=== PATIENT | female | born 1950 | race Caucasian/White ===

== ENCOUNTER → 2020-04-26 | Outpatient (CLI) | payer MEDICARE, OTHER ==
[~2020-04-26] MED LIST: CEFP500 PO; COLE625 PO; FOLI1 PO; Flomax0.4 MG PO; HYOS.125 SL; LOPE2C PO; Pyridium100 MG PO; TUMS ULTRA ST1177 MG PO; Vitamin D2000 UNIT PO
== END | disposition home or self-care (01) ==
LOC: LAB SHORT 15:21 → LAB 15:21
DX: D48.5 Neoplasm of uncertain behavior of skin (principal)
CPT/HCPCS: 88305

== ENCOUNTER → 2021-03-15 | Outpatient (CLI) | payer MEDICARE, OTHER ==
[2021-03-15 13:17] LABS: Stool Occult Bld Immuno 1 Negative (NEGATIVE)
== END | disposition home or self-care (01) ==
LOC: LAB SHORT 07:00 → LAB 07:00
PROVIDERS: Internal Medicine Gastroenterology
DX: Z09 Encounter for follow-up examination after completed treatment for conditions other than malignant neoplasm (principal); Z86.010 Personal history of colon polyps
CPT/HCPCS: 82274

== ENCOUNTER → 2021-04-26 | Outpatient (CLI) | payer MEDICARE, OTHER | LOC: LAB SHORT 12:49 → LAB 12:49 | DX: D48.5 Neoplasm of uncertain behavior of skin (principal); D22.39 Melanocytic nevi of other parts of face; Q82.8 Other specified congenital malformations of skin | CPT/HCPCS: 88305; 88312 ==

== ENCOUNTER 2022-03-08 07:16 | Day surgery (SDC) | payer MEDICARE, OTHER ==
[~2022-03-08] VITALS: Ht 180.3 cm; Wt 71.7 kg
[~2022-03-08 07:16] MED LIST changes: +DIPATR PO; +VITAMIN D310 MC4 PO; +[UNRECOGNIZED DRUG - OTHER] PO
--- NOTE | 2022-03-08 08:19 | NUR ---
Ambulatory in Day SurgeryPatient states colon prep results clear. History, Chart, Medications and Allergies reviewed before start of procedure.Pre-Op teaching done. Pt verbalizes understanding. Patient States Post-Procedure ride home has been arranged.
--- NOTE | 2022-03-08 09:12 | NUR ---
03/08/22 0912 [facility] Lopez [facility] [place] CASE WITH DR. HARMON, SEE ANESTHESIA RECORDS. PROCEDURE PERFORMED IN OR 2.
--- NOTE | 2022-03-08 11:00 | NUR ---
Patient up to Ambulate independently. Gait steady. Discharge instructions reviewed with patient. Patient verbalizes understanding. Copy given to patient to take home. Patient States Post-Procedure ride home has been arranged. Discharged via wheelchair to private car for ride home. PT DECLINED PAIN MEDICATION WELL RN ASSESSING PAD. PT REPORTS THAT SHE IS FEELING DRY AND THAT SHE HAS PADS AT HOME IF NEEDED. PT REPORTS NO PAIN, N/V, SOB, CP.
== END 2022-03-08 11:00 | disposition home or self-care (01) ==
LOC: ORSCMMR 07:16 → ORD 07:30 → ORSCMMR 08:45
DX: K62.5 Hemorrhage of anus and rectum (principal); Z86.010 Personal history of colon polyps; K64.4 Residual hemorrhoidal skin tags; Z85.42 Personal history of malignant neoplasm of other parts of uterus; E78.5 Hyperlipidemia, unspecified; I65.8 Occlusion and stenosis of other precerebral arteries; G62.9 Polyneuropathy, unspecified; Z79.899 Other long term (current) drug therapy
CPT/HCPCS: 88304; A9270; J1100; J2405; J2704; J2795; J3010; J7120